=== PATIENT | male | born 1970 | race American Indian/Alaskan Native ===

== ENCOUNTER 2021-03-21 07:51 | Outpatient (CLI) | payer BC ==
[2021-03-21 17:39] LABS: SARS-CoV-2 PCR by NAA DETECTED (NotDetected)
== END 2021-03-21 07:52 | disposition home or self-care (01) ==
LOC: CSHLAB 07:51
PROVIDERS: ATTEND Internal Medicine Gastroenterology
DX: U07.1 COVID-19 (principal); Z12.11 Encounter for screening for malignant neoplasm of colon
CPT/HCPCS: U0003; U0005

== ENCOUNTER 2021-04-11 06:29 | Day surgery (SDC) | payer BC ==
[2021-04-06 13:15] VITALS: BMI 23.0
[2021-04-11] MEDS ORDERED: Lidocaine 1% MPF 2 ML VIAL ONE (07:44)
[2021-04-11] MEDS ORDERED: Lidocaine 2% MPF 10 ML AMP (For Epidural Use) ONE (08:55)
[2021-04-11] MEDS ORDERED: PROPOFOL 40 ML ONE (08:55)
== END 2021-04-11 10:20 | disposition home or self-care (01) ==
LOC: CSHSDC 06:29
PROVIDERS: ATTEND Internal Medicine Gastroenterology
PROC: 0DJD8ZZ Inspection of Lower Intestinal Tract, Via Natural or Artificial Opening Endoscopic (ICD-10-PCS; principal; 2021-04-11)
DX: Z12.11 Encounter for screening for malignant neoplasm of colon (principal); K64.9 Unspecified hemorrhoids; E78.5 Hyperlipidemia, unspecified
CPT/HCPCS: J2704